=== PATIENT | male | born 2005 | race Caucasian/White ===

== ENCOUNTER → 2025-04-07 | Outpatient (CLI) | payer BC ==
--- NOTE | 2025-04-07 09:59 | XR ---
EXAMINATION TYPE: XR abdomen 1V DATE OF EXAM: 04/07/2025 9:54 AM CLINICAL INDICATION: Male, 20 years old with history of R10.817 abdominal tenderness, pain TECHNIQUE: 2 supine views of the abdomen. COMPARISON: None. FINDINGS: Scattered gas is seen in non-distended small bowel loops. Gas and fecal material is seen in non-distended colon. There is no visceromegaly or abnormal calcification appreciated. The lung bases are clear and the osseous structures are intact. IMPRESSION: Overall nonobstructive bowel gas pattern. [facility], , 04/07/2025 9:57 AM
== END | disposition home or self-care (01) ==
LOC: RADXRMAIN 09:38
PROVIDERS: ATTEND Internal Medicine
DX: R10.817 Generalized abdominal tenderness (principal)
CPT/HCPCS: 74018